=== PATIENT | male | born 1935 | race Caucasian/White ===

== ENCOUNTER → 2016-10-27 | Outpatient (CLI) | payer OTHER ==
[~2016-10-27] MED LIST: ALLO100T30 PO; ASPI325T4 PO; ENAL10TA PO; METF850T2 PO; METO-99 PO; TADA5TAB2 PO; [UNRECOGNIZED DRUG - CODE] PO
== END | disposition home or self-care (01) ==
LOC: CFH 12:55
PROVIDERS: ATTEND Internal Medicine Cardiovascular Disease
DX: I08.0 Rheumatic disorders of both mitral and aortic valves (principal); I48.91 Unspecified atrial fibrillation
CPT/HCPCS: 93306

== ENCOUNTER → 2017-09-10 | Outpatient (CLI) | payer OTHER ==
[~2017-09-10] MED LIST changes: +ASPI325T17 PO; -ASPI325T4 PO
== END | disposition home or self-care (01) ==
LOC: CFH 09:29
PROVIDERS: ATTEND Internal Medicine Cardiovascular Disease
DX: I08.0 Rheumatic disorders of both mitral and aortic valves (principal); I21.3 ST elevation (STEMI) myocardial infarction of unspecified site; I10 Essential (primary) hypertension; E11.9 Type 2 diabetes mellitus without complications; E78.5 Hyperlipidemia, unspecified
CPT/HCPCS: 93306

== ENCOUNTER → 2020-05-17 | Outpatient (CLI) | payer OTHER ==
[~2020-05-17] MED LIST changes: -ENAL10TA PO; +ENAL10TA9 PO; +METF850T10 PO; -METF850T2 PO
== END | disposition home or self-care (01) ==
LOC: RAD 11:06
PROVIDERS: ATTEND Internal Medicine Cardiovascular Disease
DX: Z01.810 Encounter for preprocedural cardiovascular examination (principal); I65.23 Occlusion and stenosis of bilateral carotid arteries; I08.0 Rheumatic disorders of both mitral and aortic valves; R06.02 Shortness of breath; I25.10 Atherosclerotic heart disease of native coronary artery without angina pectoris; I70.0 Atherosclerosis of aorta; M51.34 Other intervertebral disc degeneration, thoracic region; J84.10 Pulmonary fibrosis, unspecified; J98.4 Other disorders of lung; Q25.46 Tortuous aortic arch
CPT/HCPCS: 71250; 74176; 93880; 93978

== ENCOUNTER 2020-06-25 14:26 | Outpatient (CLI) | payer OTHER ==
[~2020-06-25 14:26] MED LIST changes: +ASPI81TA45 PO; +FURO20TA3 PO; +LOVA40TA2 PO; +METO-95 PO; +RIVA15TA PO; +hydrALAzine 20 MG/ML, 1ML ONE
== END 2020-06-25 23:59 | disposition home or self-care (01) ==
LOC: CVU 14:26
PROVIDERS: ATTEND Internal Medicine Cardiovascular Disease
DX: Z01.810 Encounter for preprocedural cardiovascular examination (principal); I34.8 Other nonrheumatic mitral valve disorders; R06.02 Shortness of breath; I65.29 Occlusion and stenosis of unspecified carotid artery
CPT/HCPCS: 93306